=== PATIENT | male | born 1960 | race Caucasian/White ===

== ENCOUNTER 2016-09-05 09:44 | Emergency (ER) | payer MEDICAID ==
[~2016-09-05] VITALS: Ht 177.8 cm; Wt 80.5 kg
[~2016-09-05 09:44] MED LIST: ENAL2.5T PO; RISP1TAB45 PO
[2016-09-05 09:46] VITALS: BP 124/82
[2016-09-05] MEDS ORDERED: SODIUM CHLORIDE FLUSH 10ML SYR IVF ONE (10:30)
[2016-09-05 10:51] LABS: BLOOD UREA NITROGEN 14 mg/dL (7-18)
[2016-09-05] MEDS ORDERED: OMNIPAQUE 350 MG/ML, 100ML BOTTLE ONE (11:12)
[2016-09-05] MEDS ORDERED: LIDOCAINE 1%, 20ML ONE (11:42)
[2016-09-05] MEDS ORDERED: LIDOCAINE 1%, 20ML SQ ONE (12:00)
== END 2016-09-05 12:02 | disposition home or self-care (01) ==
LOC: ED 10:20
DX: L72.3 Sebaceous cyst (principal); I10 Essential (primary) hypertension; R22.1 Localized swelling, mass and lump, neck; Z88.0 Allergy status to penicillin
CPT/HCPCS: 10060; 36415; 70491; 80048; 82040; 85025; 99285; Q9967

== ENCOUNTER 2016-09-07 12:26 | Emergency (ER) | payer MEDICAID ==
[~2016-09-07] VITALS: Ht 177.8 cm; Wt 80.6 kg
[2016-09-07 12:39] VITALS: BP 110/73
== END 2016-09-07 13:19 | disposition home or self-care (01) ==
LOC: ED 13:10
DX: Z48.01 Encounter for change or removal of surgical wound dressing (principal); I10 Essential (primary) hypertension
CPT/HCPCS: 99283

== ENCOUNTER 2017-03-11 10:33 | Emergency (ER) | payer SELFPAY ==
[~2017-03-11] VITALS: Ht 177.8 cm; Wt 78.3 kg
[2017-03-11 10:34] VITALS: BP 124/90
== END 2017-03-11 12:04 | disposition home or self-care (01) ==
LOC: ED 11:58
DX: T78.3XXA Angioneurotic edema, initial encounter (principal); T46.4X5A Adverse effect of angiotensin-converting-enzyme inhibitors, initial encounter; I10 Essential (primary) hypertension
CPT/HCPCS: 99283; J7512; Q0177

== ENCOUNTER 2017-04-11 12:41 | Emergency (ER) | payer MEDICAID ==
[~2017-04-11] VITALS: Ht 177.8 cm; Wt 79.0 kg
[2017-04-11 12:43] VITALS: BP 176/108
[2017-04-11] MEDS ORDERED: HYDROcodone/APAP 5/325 TABLET PO ONE (13:30)
== END 2017-04-11 14:04 | disposition left against medical advice (07) ==
LOC: ED 13:39
DX: S01.511A Laceration without foreign body of lip, initial encounter (principal); W01.0XXA Fall on same level from slipping, tripping and stumbling without subsequent striking against object, initial encounter; Y93.89 Activity, other specified; Y92.89 Other specified places as the place of occurrence of the external cause; Y99.8 Other external cause status
CPT/HCPCS: 99281

== ENCOUNTER 2017-10-12 09:30 | Emergency (ER) | payer MEDICAID ==
[~2017-10-12] VITALS: Ht 177.8 cm; Wt 76.9 kg
[~2017-10-12 09:30] MED LIST changes: +DIPH25CA61 PO; +LOSA50TA6 PO; +PANT40TA5 PO
[2017-10-12 09:31] VITALS: BP 134/92
== END 2017-10-12 10:29 | disposition home or self-care (01) ==
LOC: ED 10:15
DX: K02.9 Dental caries, unspecified (principal); I10 Essential (primary) hypertension; Z88.0 Allergy status to penicillin; Z88.8 Allergy status to other drugs, medicaments and biological substances
CPT/HCPCS: 99283